=== PATIENT | male | born 1945 | race Two or more races ===

== ENCOUNTER 2022-02-17 20:52 | Emergency (ER) | payer OTHER ==
[~2022-02-17] VITALS: Ht 167.6 cm; Wt 75.3 kg
[2022-02-18] MEDS ORDERED: MIRALAX510 GM PO (01:19)
== END 2022-02-18 11:21 ==
LOC: ER 20:52
DX: K59.09 Other constipation (principal); R09.02 Hypoxemia; R50.9 Fever, unspecified; G83.9 Paralytic syndrome, unspecified; Z85.46 Personal history of malignant neoplasm of prostate; Z93.1 Gastrostomy status